=== PATIENT | male | born 1940 | race Caucasian/White ===

== ENCOUNTER 2017-04-27 07:27 | Inpatient (IN) | payer OTHER ==
[~2017-04-27] VITALS: Ht 180.3 cm; Wt 97.0 kg
[~2017-04-27 07:27] MED LIST: CRESTOR20 MG PO; DULCOLAX10 MG PR; FISH OIL 1,0001 EAC7 PO; FISH OIL CONC1 EACH PO; LISINOPRIL5 MG PO; LO-DOSE ASPIRIN81 M1 PO; METOPROLOL TART25 MG PO; NORCO 5/3251 TABLET PO; ONE DAILY FOR1 EACH PO; OXYCODONE HCL5 MG PO; PRINIVIL10 MG PO; PROSTATE HEALT1 EAC1 PO; RAMIPRIL10 MG PO; RED YEAST RICE600 MG PO; SUPER BETA PROSTATE PO; TYLENOL EXTRA500 MG PO
[2017-04-27 07:56] LABS: BASOPHIL COUNT 0.1 K/uL (0-0.1); EOSINOPHIL (%) 4.5 % (0-5); EOSINOPHIL COUNT 0.2 K/uL (0-0.3); HEMATOCRIT 42.1 % (38.0-50.0); HEMOGLOBIN 14.2 G/DL (12.5-16.6); IMMATURE GRANULOCYTE (%) 0.2 % (0.0-0.7); LYMPHOCYTE (%) 25.7 % (15-42); LYMPHOCYTE COUNT 1.3 K/uL (1.0-2.8); MCH 32.1 PG (29.0-34.0); MCHC 33.7 G/DL (30.0-36.0); MCV 95.2 FL (86-99); MONOCYTE (%) 8.3 % (3-12); MONOCYTE COUNT 0.4 K/uL (0-0.8); NEUTROPHIL (%) 60.3 % (45-76); NEUTROPHIL COUNT 3.1 K/uL (1.8-6.4); PLATELET COUNT 139 K/uL (156-360); RBC DIS.WIDTH-CV 11.9 % (11.8-14.6); RBC DIS.WIDTH-SD 41.4 % (39-53); RED BLOOD COUNT 4.42 M/uL (4.00-5.50); WHITE BLOOD COUNT 5.1 K/uL (4.1-10.2)
[2017-04-27 08:05] LABS: AMYLASE 73 IU/L (1-118); CHLORIDE 108 mEq/L (99-109); POTASSIUM 4.1 mEq/L (3.7-5.4); SODIUM 141 mEq/L (136-147)
[2017-04-27 08:07] LABS: GLUCOSE 102 mg/dL (70-99)
[2017-04-27 08:10] LABS: SERUM ETHYL ALCOHOL < 10 mg/dL
[2017-04-27 08:11] LABS: GFR ESTIMATE (CALCULATED) > 59 mL/min/ (58.99-99999)
[2017-04-27 08:12] LABS: UREA NITROGEN (BUN) 20 mg/dL (9-23)
[2017-04-27 08:14] LABS: LIPASE 23 U/L (1.0-51.0)
[2017-04-27 08:16] LABS: INTER. NORMALIZED RATIO 1.1
[2017-04-27 08:18] LABS: PTT 26.2 SEC (25-37)
[2017-04-27 08:47] LABS: APPEARANCE CLEAR ((CLEAR)); BILIRUBIN NEGATIVE; BLOOD MODERATE; COLOR YELLOW ((YELLOW)); GLUCOSE (STRIP) NEGATIVE; KETONES NEGATIVE; LEUKOCYTES NEGATIVE; NITRITE NEGATIVE; PROTEIN (STRIP) NEGATIVE; SPECIFIC GRAVITY 1.015 (1.000-1.030)
[2017-04-27 08:49] LABS: TROP-I INTERPRETATION NEGATIVE; TROPONIN-I 0.01 ng/mL (0.0-0.30)
[2017-04-27 08:59] LABS: BACTERIA RARE /HPF; EPITHELIAL CELLS NONE SEEN /HPF; MUCUS TRACE /LPF; RED BLOOD CELLS 40-50 /HPF (0-5); UCUL ADDED? NO; WHITE BLOOD CELLS 0-5 /HPF (0-5)
[2017-04-27 09:12] LABS: AMPHETAMINE NEGATIVE (500 ng/mL); BARBITURATES NEGATIVE (200 ng/mL); BENZODIAZEPINES NEGATIVE (150 ng/mL); BUPRENORPHINE NEGATIVE (10 ng/mL); COCAINE NEGATIVE (150 ng/mL); METHADONE NEGATIVE (200 ng/mL); METHAMPHETAMINE NEGATIVE (500 ng/mL); OPIATES (MORPHINE) NEGATIVE (100 ng/mL); OXYCODONE NEGATIVE (100 ng/mL); PHENCYCLIDINE NEGATIVE (25 ng/mL); PROPOXYPHENE NEGATIVE (300 ng/mL); THC CANNABINOIDS NEGATIVE (50 ng/mL); TRICYCLIC ANTIDEPRESSANTS NEGATIVE (300 ng/mL)
[2017-04-27] MEDS ORDERED: SIMVASTATIN20 MG PO (13:02)
[2017-04-27] MEDS ORDERED: CLOPIDOGREL75 MG PO (13:03)
[2017-04-27 14:23] VITALS: BP 144/81
[2017-04-27 14:35] LABS: HDL CHOLESTEROL 36 MG/DL (Desirable>=40); LDL CHOLESTEROL 78 mg/dL (Desirable<100); NON-HDL CHOLESTEROL 95 mg/dL (Desirable<160); TOTAL CHOLESTEROL 131 mg/dL (Desirable<200); TRIGLYCERIDES 84 MG/DL (Normal: <150)
[2017-04-27 15:51] VITALS: BP 179/97
[2017-04-27 18:44] LABS: TROP-I INTERPRETATION NEGATIVE; TROPONIN-I 0.02 ng/mL (0.0-0.30)
[2017-04-27 19:43] VITALS: BP 169/95
[2017-04-27 23:10] LABS: TROP-I INTERPRETATION NEGATIVE; TROPONIN-I 0.03 ng/mL (0.0-0.30)
[2017-04-28] VITALS (7 sets, daily range): BP systolic 130–162; BP diastolic 70–720
[2017-04-28 09:40] LABS: HEMOGLOBIN A1c (GLYCOHEMOGLOB) 5.2 % (Below 5.7)
[2017-04-28 19:55] LABS: HDL CHOLESTEROL 30 MG/DL (Desirable>=40); LDL CHOLESTEROL 64 mg/dL (Desirable<100); NON-HDL CHOLESTEROL 96 mg/dL (Desirable<160); TOTAL CHOLESTEROL 126 mg/dL (Desirable<200); TRIGLYCERIDES 158 MG/DL (Normal: <150)
[2017-04-28 22:10] LABS: HEMATOCRIT 40.9 % (38.0-50.0); HEMOGLOBIN 13.6 G/DL (12.5-16.6)
[2017-04-29 06:08] LABS: HEMATOCRIT 39.2 % (38.0-50.0); HEMOGLOBIN 13.4 G/DL (12.5-16.6); MCV 93.3 FL (86-99)
[2017-04-29 07:00] VITALS: BP 134/68
[2017-04-29 11:00] VITALS: BP 142/79
[2017-04-29 15:07] VITALS: BP 135/89
[2017-04-29 20:00] VITALS: BP 134/80
[2017-04-30] VITALS (8 sets, daily range): BP systolic 123–156; BP diastolic 65–88
[2017-04-30 07:03] LABS: BASOPHIL (%) 0.7 % (0-1); EOSINOPHIL (%) 3.6 % (0-5); EOSINOPHIL COUNT 0.2 K/uL (0-0.3); HEMATOCRIT 38.2 % (38.0-50.0); HEMOGLOBIN 13.2 G/DL (12.5-16.6); IMMATURE GRANULOCYTE (%) 0.2 % (0.0-0.7); LYMPHOCYTE (%) 25.5 % (15-42); LYMPHOCYTE COUNT 1.5 K/uL (1.0-2.8); MCH 32.6 PG (29.0-34.0); MCHC 34.6 G/DL (30.0-36.0); MCV 94.3 FL (86-99); MONOCYTE (%) 9.6 % (3-12); MONOCYTE COUNT 0.6 K/uL (0-0.8); NEUTROPHIL (%) 60.4 % (45-76); NEUTROPHIL COUNT 3.6 K/uL (1.8-6.4); NRBC (%) 0.5 /100 WBC (0-0); PLATELET COUNT 174 K/uL (156-360); RBC DIS.WIDTH-CV 11.9 % (11.8-14.6); RBC DIS.WIDTH-SD 41.5 % (39-53); RED BLOOD COUNT 4.05 M/uL (4.00-5.50); WHITE BLOOD COUNT 5.9 K/uL (4.1-10.2)
[2017-04-30 07:25] LABS: CHLORIDE 109 MEQ/L (99-109); GFR ESTIMATE (CALCULATED) > 59 mL/min/ (58.99-99999); GLUCOSE 96 mg/dL (70-99); POTASSIUM 4.1 MEQ/L (3.7-5.4); SODIUM 141 MEQ/L (136-147); UREA NITROGEN (BUN) 19 mg/dL (9-23)
[2017-05-01 03:41] VITALS: BP 121/71
[2017-05-01 12:26] VITALS: BP 141/81
[2017-05-01] MEDS ORDERED: ADULT ASPIRIN R81 MG PO (15:12)
== END 2017-05-01 17:48 | DRG 65 ==
LOC: EME 07:27 → 5SOUTH 12:38 → EDOF 12:38 → ENRESERV 12:39 → EDOF 13:31 → 5SOUTH 14:01
PROVIDERS: Emergency Medicine Emergency Medical Services; Internal Medicine; Student in an Organized Health Care Education/Training Program
DX: I63.511 Cerebral infarction due to unspecified occlusion or stenosis of right middle cerebral artery (principal); R29.701 NIHSS score 1; K21.9 Gastro-esophageal reflux disease without esophagitis; I10 Essential (primary) hypertension; I25.10 Atherosclerotic heart disease of native coronary artery without angina pectoris; G89.29 Other chronic pain; J45.909 Unspecified asthma, uncomplicated; I71.2 Thoracic aortic aneurysm, without rupture; K76.0 Fatty (change of) liver, not elsewhere classified; R31.0 Gross hematuria; E78.5 Hyperlipidemia, unspecified; Z90.49 Acquired absence of other specified parts of digestive tract; Z95.1 Presence of aortocoronary bypass graft; I69.354 Hemiplegia and hemiparesis following cerebral infarction affecting left non-dominant side; Z79.82 Long term (current) use of aspirin; Z79.02 Long term (current) use of antithrombotics/antiplatelets; Z87.442 Personal history of urinary calculi; I69.351 Hemiplegia and hemiparesis following cerebral infarction affecting right dominant side
CPT/HCPCS: 70450; 70496; 70498; 70551; 71045; 76770; 80048; 80061; 81003; 82150; 82948; 83036; 83605; 83690; 84484; 85014; 85018; 85025; 85610; 85730; 86850; 86900; 86901; 87040; 87077; 87086; 87186; 87801; 92526 GN; 92610 GN; 93005; 93306; 97530 GO; 97530 GP; 99281; 99285; G0480; J1650; J2060; J7040; J7042